=== PATIENT | female | born 1990 | race Caucasian/White ===

== ENCOUNTER 2018-05-27 17:53 | Inpatient (IN) | payer OTHER ==
[~2018-05-27] VITALS: Ht 157.5 cm; Wt 60.4 kg
[2018-05-27] MEDS ORDERED: ESLI600T PO (18:01)
[2018-05-27] MEDS ORDERED: DIPH25 PO (18:01)
[2018-05-27] MEDS ORDERED: ETHI1TAB28 PO (18:01)
[2018-05-27] MEDS ORDERED: GABA-531 PO (18:01)
[2018-05-27] MEDS ORDERED: HYDR-4031 PO (18:01)
[2018-05-27] MEDS ORDERED: TRAZ-220 PO (18:01)
[2018-05-27] MEDS ORDERED: FLUO-191 PO (18:02)
[2018-05-27] MEDS ORDERED: DiphenhydrAMINE HCL 25 MG CAPSULE PO ONE (19:45)
[2018-05-27] MEDS ORDERED: ACETAMINOPHEN 325 MG TABLET PO ONE (19:45)
[2018-05-27 20:00] LABS: BASOPHILS % (AUTO) 0.1 % (0.0-2.0); EOSINOPHILS % (AUTO) 0.5 % (1.0-6.0); HEMATOCRIT 34.6 % (36-46); HEMOGLOBIN 11.8 g/dL (12.0-16.0); LYMPHOCYTES # (AUTO) 2.3 K/uL (1.0-4.8); MEAN CORPUSCULAR HEMOGLOBIN 30.1 pg (26.0-34.0); MEAN CORPUSCULAR HGB CONC 34.1 G/dL (31.0-37.0); MEAN CORPUSCULAR VOLUME 89 fL (80-100); MONOCYTES # (AUTO) 0.6 K/uL (0.1-1.0); MONOCYTES % (AUTO) 6.7 % (2.0-9.0); NEUTROPHILS # (AUTO) 6.1 K/uL (1.8-7.7); NEUTROPHILS % (AUTO) 67.7 % (40.0-70.0); PLATELET COUNT (AUTO) 247 K/uL (150-450); RED BLOOD CELL COUNT(AUTO) 3.91 MIL/uL (4.00-5.20)
[2018-05-27 20:11] LABS: ANION GAP 4 mmol/L (8-16); CALCIUM, TOTAL 8.4 mg/dL (8.8-10.5); CARBON DIOXIDE 32 mmol/L (22-29); CHLORIDE 105 mmol/L (98-107); CREATININE 0.87 mg/dL (0.60-1.30); GLOMERULAR FILTR. RATE CALC > 60 mL/min (>60); GLUCOSE,RANDOM 134 mg/dL (70-110); POTASSIUM 3.8 mmol/L (3.5-5.1); SODIUM SERUM 141 mmol/L (136-145); UREA NITROGEN, BLOOD 13 mg/dL (7-18)
[2018-05-27 20:17] LABS: ALANINE AMINOTRANSFERASE 26 U/L (12-78); ALBUMIN 3.4 g/dL (3.4-5.0); ALKALINE PHOSPHATASE 43 U/L (46-116); ASPARTATE AMINOTRANSFERASE 24 U/L (15-37); BILIRUBIN,TOTAL 0.2 mg/dL (0.1-1.0); TOTAL PROTEIN, SERUM 6.7 g/dL (6.4-8.2)
[2018-05-27 21:10] LABS: AMPHET/METH SCREEN,URINE NEGATIVE (NEGATIVE); BARBITURATE SCREEN, URINE NEGATIVE (NEGATIVE); BENZODIAZEPINES SCREEN,URINE NEGATIVE (NEGATIVE); CANNABINOID SCREEN,URINE NEGATIVE (NEGATIVE); COCAINE SCREEN,URINE NEGATIVE (NEGATIVE); METHADONE SCREEN, URINE NEGATIVE (NEGATIVE); OPIATE SCREEN,URINE NEGATIVE (NEGATIVE)
[2018-05-27 21:11] LABS: PHENCYCLIDINE SCREEN,URINE NEGATIVE (NEGATIVE)
[2018-05-27] MEDS ORDERED: OLANZapine 5 MG RAPDIS TABLET PO PRN (21:30)
[2018-05-27] MEDS: LORazepam 2 MG TABLET PO PRN (23:05)
[2018-05-28 08:08] LABS: CHOL/HDL RATIO 2.3 (3.9-5.7); CHOLESTEROL 203 mg/dL (131-200); HDL CHOLESTEROL 89 mg/dL (40-60); LDL CHOL (CALC.) 101 mg/dL (0-130); TRIGLYCERIDES 65 mg/dL (15-150)
[2018-05-28] MEDS: LORazepam 2 MG TABLET PO PRN (11:30)
[2018-05-28 14:28] VITALS: BP 115/63
[2018-05-28] MEDS ORDERED: LOPERAMIDE HCL 2 MG CAPSULE PO PRN (15:45)
[2018-05-28] MEDS: OMEPRAZOLE 20 MG CAPSULE PO SCH (16:25)
[2018-05-28] MEDS: FLUTICASONE PROPIONATE 50 MCG/SPRAY 16 GM NASAL SPRAY NASAL SCH (16:30)
[2018-05-28] MEDS: DOCUSATE SODIUM 100 MG CAPSULE PO SCH (16:30)
[2018-05-28] MEDS ORDERED: MAGNESIUM HYDROXIDE SUSPENSION 30 ML UDCUP PO PRN (16:45)
[2018-05-28] MEDS ORDERED: TUBERCULIN, PURIFIED PROTEIN DERIVATIVE 5 TU/0.1 ML SYG ID ONE (16:45)
[2018-05-28] MEDS ORDERED: MAG HYDROX/AL HYDROX/SIMETH ES 30 ML SUSPENSION UDCUP PO PRN (16:45)
[2018-05-28] MEDS ORDERED: PROMETHAZINE HCL 25 MG TABLET PO PRN (16:45)
[2018-05-28] MEDS ORDERED: HydrOXYzine PAMOATE 50 MG CAPSULE PO PRN (16:45)
[2018-05-28] MEDS ORDERED: GuaiFENesin/D-METHORPHAN [SUGAR-FREE] 200-20MG/10 ML SYRUP UDCUP PO PRN (16:45)
[2018-05-28] MEDS ORDERED: HydrOXYzine PAMOATE 25 MG CAPSULE PO SCH (17:00)
[2018-05-28] MEDS: GABAPENTIN 300 MG CAPSULE PO SCH ×2 (17:00→20:30)
[2018-05-28] MEDS ORDERED: GABAPENTIN 300 MG CAPSULE PO SCH (17:00)
[2018-05-28] MEDS: THIAMINE HCL 100 MG TABLET PO SCH (17:24)
[2018-05-28] MEDS ORDERED: *PATIENT'S OWN MED [ENTER DRUG, DOSE, FREQUENCY IN COMMENTS] CLINICAL ONE ×2 (18:15)
[2018-05-28] MEDS: TraZODone HCL 100 MG TABLET PO SCH (20:28)
[2018-05-28] MEDS: NYSTATIN 30 GM CREAM TP SCH (20:30)
[2018-05-28] MEDS: ZOLPIDEM TARTRATE 10 MG TABLET PO PRN (20:30)
[2018-05-28 22:46] VITALS: BP 111/63
[2018-05-29] MEDS: DROSPIRENONE PO SCH (08:34)
[2018-05-29] MEDS: ETHINYL ESTRADIOL PO SCH (08:34)
[2018-05-29] MEDS: DOCUSATE SODIUM 100 MG CAPSULE PO SCH ×2 (09:00→18:20)
[2018-05-29] MEDS: FLUTICASONE PROPIONATE 50 MCG/SPRAY 16 GM NASAL SPRAY NASAL SCH ×2 (09:00→18:20)
[2018-05-29] MEDS: OMEPRAZOLE 20 MG CAPSULE PO SCH ×2 (09:00→18:20)
[2018-05-29] MEDS: MULTIVITAMINS WITH MINERALS, THERAPEUTIC TABLET PO SCH (09:00)
[2018-05-29] MEDS: NALTREXONE HCL 50 MG TABLET PO SCH (09:00)
[2018-05-29] MEDS: THIAMINE HCL 100 MG TABLET PO SCH ×2 (09:00→17:00)
[2018-05-29] MEDS: FOLIC ACID 1 MG TABLET PO SCH (09:00)
[2018-05-29] MEDS: DOXYCYCLINE HYCLATE 100 MG CAPSULE PO SCH (09:00)
[2018-05-29] MEDS: GABAPENTIN 300 MG CAPSULE PO SCH ×2 (09:29→13:00)
[2018-05-29 09:34] VITALS: BP 103/61
[2018-05-29] MEDS ORDERED: GABAPENTIN 300 MG CAPSULE PO PRN (16:45)
[2018-05-29] MEDS ORDERED: ZIPRASIDONE MESYLATE 20 MG/VIAL IM ONE ×2 (17:43→17:45)
[2018-05-29] MEDS ORDERED: LORazepam 2 MG/ML VIAL ONE (17:43)
[2018-05-29] MEDS ORDERED: LORazepam 2 MG/ML VIAL IM ONE (17:45)
[2018-05-29] MEDS: LevETIRAcetam 500 MG TABLET PO SCH (18:20)
[2018-05-29] MEDS: BACITRACIN 28.4 GM OINTMENT TP SCH (18:20)
[2018-05-29] MEDS: FLUoxetine HCL 20 MG CAPSULE PO SCH (18:20)
[2018-05-29] MEDS: ESLICARBAZEPINE ACETATE 600 MG PO SCH (22:00)
[2018-05-29] MEDS: NYSTATIN 30 GM CREAM TP SCH (22:00)
[2018-05-29] MEDS: TraZODone HCL 100 MG TABLET PO SCH (22:00)
[2018-05-30] MEDS: LevETIRAcetam 500 MG TABLET PO SCH ×2 (08:34→16:16)
[2018-05-30] MEDS: ETHINYL ESTRADIOL PO SCH (08:35)
[2018-05-30] MEDS: DROSPIRENONE PO SCH (08:35)
[2018-05-30] MEDS: FLUoxetine HCL 20 MG CAPSULE PO SCH (08:35)
[2018-05-30] MEDS: DOCUSATE SODIUM 100 MG CAPSULE PO SCH ×2 (08:46→17:00)
[2018-05-30] MEDS: FLUTICASONE PROPIONATE 50 MCG/SPRAY 16 GM NASAL SPRAY NASAL SCH ×2 (08:46→17:00)
[2018-05-30] MEDS: OMEPRAZOLE 20 MG CAPSULE PO SCH ×2 (08:47→16:16)
[2018-05-30] MEDS: NALTREXONE HCL 50 MG TABLET PO SCH (08:47)
[2018-05-30] MEDS: FOLIC ACID 1 MG TABLET PO SCH (08:47)
[2018-05-30] MEDS: MULTIVITAMINS WITH MINERALS, THERAPEUTIC TABLET PO SCH (08:47)
[2018-05-30] MEDS: THIAMINE HCL 100 MG TABLET PO SCH ×2 (08:48→16:16)
[2018-05-30] MEDS: DOXYCYCLINE HYCLATE 100 MG CAPSULE PO SCH (08:48)
[2018-05-30] MEDS: BACITRACIN 28.4 GM OINTMENT TP SCH ×2 (08:52→16:16)
[2018-05-30] MEDS: DiphenhydrAMINE HCL 25 MG CAPSULE PO PRN ×2 (09:25→20:46)
[2018-05-30] MEDS: LORazepam 2 MG TABLET PO PRN (16:22)
[2018-05-30 17:00] VITALS: BP 137/78
[2018-05-30] MEDS: ZOLPIDEM TARTRATE 10 MG TABLET PO PRN (20:45)
[2018-05-30] MEDS: NYSTATIN 30 GM CREAM TP SCH (21:41)
[2018-05-30] MEDS: TraZODone HCL 100 MG TABLET PO SCH (21:41)
[2018-05-30] MEDS: ESLICARBAZEPINE ACETATE 600 MG PO SCH (21:41)
[2018-05-31] MEDS: DiphenhydrAMINE HCL 25 MG CAPSULE PO PRN (07:00)
[2018-05-31] MEDS: DOCUSATE SODIUM 100 MG CAPSULE PO SCH ×2 (09:00→16:43)
[2018-05-31] MEDS: NALTREXONE HCL 50 MG TABLET PO SCH (09:00)
[2018-05-31] MEDS: DOXYCYCLINE HYCLATE 100 MG CAPSULE PO SCH (09:00)
[2018-05-31] MEDS: OMEPRAZOLE 20 MG CAPSULE PO SCH ×2 (10:08→16:35)
[2018-05-31] MEDS: MULTIVITAMINS WITH MINERALS, THERAPEUTIC TABLET PO SCH (10:08)
[2018-05-31] MEDS: FOLIC ACID 1 MG TABLET PO SCH (10:08)
[2018-05-31] MEDS: THIAMINE HCL 100 MG TABLET PO SCH ×2 (10:08→16:35)
[2018-05-31] MEDS: FLUoxetine HCL 20 MG CAPSULE PO SCH (10:08)
[2018-05-31] MEDS: LevETIRAcetam 500 MG TABLET PO SCH ×2 (10:08→16:35)
[2018-05-31] MEDS: ETHINYL ESTRADIOL PO SCH (10:09)
[2018-05-31] MEDS: DROSPIRENONE PO SCH (10:09)
[2018-05-31] MEDS: BACITRACIN 28.4 GM OINTMENT TP SCH ×2 (10:09→16:35)
[2018-05-31] MEDS: ACETAMINOPHEN 325 MG TABLET PO PRN (12:24)
[2018-05-31] MEDS: FLUTICASONE PROPIONATE 50 MCG/SPRAY 16 GM NASAL SPRAY NASAL SCH ×2 (13:02→16:42)
[2018-05-31] MEDS: LITHIUM CARBONATE 300 MG CAPSULE PO SCH ×2 (13:03→16:35)
[2018-05-31 16:07] VITALS: BP 129/75
[2018-05-31] MEDS: NYSTATIN 30 GM CREAM TP SCH (20:33)
[2018-05-31] MEDS: ESLICARBAZEPINE ACETATE 600 MG PO SCH (20:33)
[2018-05-31] MEDS: TraZODone HCL 100 MG TABLET PO SCH (20:35)
[2018-05-31] MEDS: ZOLPIDEM TARTRATE 10 MG TABLET PO PRN (20:42)
[2018-06-01] MEDS: DOCUSATE SODIUM 100 MG CAPSULE PO SCH ×3 (08:36→17:00)
[2018-06-01] MEDS: MULTIVITAMINS WITH MINERALS, THERAPEUTIC TABLET PO SCH (08:36)
[2018-06-01] MEDS: OMEPRAZOLE 20 MG CAPSULE PO SCH ×2 (08:36→18:43)
[2018-06-01] MEDS: LevETIRAcetam 500 MG TABLET PO SCH ×2 (08:36→18:43)
[2018-06-01] MEDS: FLUoxetine HCL 20 MG CAPSULE PO SCH (08:37)
[2018-06-01] MEDS: THIAMINE HCL 100 MG TABLET PO SCH ×2 (08:37→18:43)
[2018-06-01] MEDS: DOXYCYCLINE HYCLATE 100 MG CAPSULE PO SCH ×2 (08:38→08:51)
[2018-06-01] MEDS: BACITRACIN 28.4 GM OINTMENT TP SCH ×2 (08:38→18:42)
[2018-06-01] MEDS: FOLIC ACID 1 MG TABLET PO SCH (08:38)
[2018-06-01] MEDS: LITHIUM CARBONATE 300 MG CAPSULE PO SCH ×2 (08:39→18:42)
[2018-06-01] MEDS: FLUTICASONE PROPIONATE 50 MCG/SPRAY 16 GM NASAL SPRAY NASAL SCH ×2 (08:39→17:00)
[2018-06-01] MEDS: NALTREXONE HCL 50 MG TABLET PO SCH (08:39)
[2018-06-01] MEDS: ETHINYL ESTRADIOL PO SCH (08:41)
[2018-06-01] MEDS: DROSPIRENONE PO SCH (08:41)
[2018-06-01] MEDS: ACETAMINOPHEN 325 MG TABLET PO PRN (12:07)
[2018-06-01 12:12] VITALS: BP 101/48
[2018-06-01 13:08] VITALS: BP 104/64
[2018-06-01 16:30] VITALS: BP 102/67
[2018-06-01] MEDS: ESLICARBAZEPINE ACETATE 600 MG PO SCH (20:18)
[2018-06-01] MEDS: NYSTATIN 30 GM CREAM TP SCH (20:18)
[2018-06-01] MEDS: TraZODone HCL 100 MG TABLET PO SCH (20:18)
[2018-06-01] MEDS: DiphenhydrAMINE HCL 25 MG CAPSULE PO PRN (22:38)
[2018-06-02] MEDS: DOCUSATE SODIUM 100 MG CAPSULE PO SCH ×2 (09:00→16:53)
[2018-06-02] MEDS: OMEPRAZOLE 20 MG CAPSULE PO SCH ×2 (09:00→16:42)
[2018-06-02] MEDS: DOXYCYCLINE HYCLATE 100 MG CAPSULE PO SCH (09:00)
[2018-06-02] MEDS: FLUTICASONE PROPIONATE 50 MCG/SPRAY 16 GM NASAL SPRAY NASAL SCH ×2 (09:00→16:52)
[2018-06-02] MEDS: NALTREXONE HCL 50 MG TABLET PO SCH (09:00)
[2018-06-02] MEDS: FLUoxetine HCL 20 MG CAPSULE PO SCH (09:10)
[2018-06-02] MEDS: LevETIRAcetam 500 MG TABLET PO SCH ×2 (09:10→16:42)
[2018-06-02] MEDS: FOLIC ACID 1 MG TABLET PO SCH (09:11)
[2018-06-02] MEDS: LITHIUM CARBONATE 300 MG CAPSULE PO SCH ×2 (09:11→16:43)
[2018-06-02] MEDS: THIAMINE HCL 100 MG TABLET PO SCH ×2 (09:11→16:43)
[2018-06-02] MEDS: BACITRACIN 28.4 GM OINTMENT TP SCH ×2 (09:11→16:44)
[2018-06-02] MEDS: MULTIVITAMINS WITH MINERALS, THERAPEUTIC TABLET PO SCH (09:11)
[2018-06-02] MEDS: ETHINYL ESTRADIOL PO SCH (09:13)
[2018-06-02] MEDS: DROSPIRENONE PO SCH (09:13)
[2018-06-02] MEDS: LORazepam 2 MG TABLET PO PRN (15:45)
[2018-06-02 16:11] VITALS: BP 129/78
[2018-06-02] MEDS: ESLICARBAZEPINE ACETATE 600 MG PO SCH (21:07)
[2018-06-02] MEDS: NYSTATIN 30 GM CREAM TP SCH (21:07)
[2018-06-02] MEDS: TraZODone HCL 100 MG TABLET PO SCH (21:07)
[2018-06-03 08:00] VITALS: BP 112/59
[2018-06-03] MEDS: LITHIUM CARBONATE 300 MG CAPSULE PO SCH (08:46)
[2018-06-03] MEDS: FLUTICASONE PROPIONATE 50 MCG/SPRAY 16 GM NASAL SPRAY NASAL SCH (08:46)
[2018-06-03] MEDS: BACITRACIN 28.4 GM OINTMENT TP SCH (08:47)
[2018-06-03] MEDS: NALTREXONE HCL 50 MG TABLET PO SCH (08:47)
[2018-06-03] MEDS: THIAMINE HCL 100 MG TABLET PO SCH (08:47)
[2018-06-03] MEDS: DOCUSATE SODIUM 100 MG CAPSULE PO SCH (08:47)
[2018-06-03] MEDS: FOLIC ACID 1 MG TABLET PO SCH (08:47)
[2018-06-03] MEDS: DOXYCYCLINE HYCLATE 100 MG CAPSULE PO SCH (08:47)
[2018-06-03] MEDS: FLUoxetine HCL 20 MG CAPSULE PO SCH (08:47)
[2018-06-03] MEDS: OMEPRAZOLE 20 MG CAPSULE PO SCH (08:47)
[2018-06-03] MEDS: LevETIRAcetam 500 MG TABLET PO SCH (08:47)
[2018-06-03] MEDS: MULTIVITAMINS WITH MINERALS, THERAPEUTIC TABLET PO SCH (08:47)
[2018-06-03] MEDS: ETHINYL ESTRADIOL PO SCH (09:39)
[2018-06-03] MEDS: DROSPIRENONE PO SCH (09:39)
[2018-06-03] MEDS: LORazepam 2 MG TABLET PO PRN (10:08)
[2018-06-03] MEDS ORDERED: FLUO-191 PO (15:50)
[2018-06-03] MEDS ORDERED: LITH300C3 PO (15:51)
[2018-06-03] MEDS ORDERED: NALT50TA6 PO (15:52)
[2018-06-03] MEDS ORDERED: TRAZ-220 PO (15:53)
[2018-06-03] MEDS ORDERED: LEVE500T53 PO (16:04)
[2018-06-03] MEDS ORDERED: DOXY100C PO (16:04)
[2018-06-03] MEDS ORDERED: OMEP20 PO (16:05)
== END 2018-06-03 17:00 | disposition home or self-care (01) | DRG 885 ==
LOC: EMS 17:55 → 3EX 05-28 13:04
PROVIDERS: ADMIT Psychiatry & Neurology Psychiatry; ATTEND Psychiatry & Neurology Child & Adolescent Psychiatry
DX: F31.9 Bipolar disorder, unspecified (principal); R45.851 Suicidal ideations; Z28.21 Immunization not carried out because of patient refusal; Z88.1 Allergy status to other antibiotic agents; Z88.8 Allergy status to other drugs, medicaments and biological substances; F41.9 Anxiety disorder, unspecified; D64.9 Anemia, unspecified; E78.5 Hyperlipidemia, unspecified; S01.91XA Laceration without foreign body of unspecified part of head, initial encounter; X58.XXXA Exposure to other specified factors, initial encounter; Y93.89 Activity, other specified; Y92.89 Other specified places as the place of occurrence of the external cause; Y99.8 Other external cause status; Z79.899 Other long term (current) drug therapy; F17.210 Nicotine dependence, cigarettes, uncomplicated; G40.909 Epilepsy, unspecified, not intractable, without status epilepticus
CPT/HCPCS: G0378; G0480; J2060; J3486

== ENCOUNTER 2018-09-03 21:25 | Emergency (ER) | payer OTHER ==
[~2018-09-03 21:25] MED LIST: DOXY100C PO; FLUO-191 PO; LEVE500T53 PO; LITH300C3 PO; NALT50TA6 PO; OMEP20 PO; TRAZ-220 PO
== END 2018-09-03 22:00 | disposition left against medical advice (07) ==
LOC: EMS 21:26
DX: R45.851 Suicidal ideations (principal); Z53.21 Procedure and treatment not carried out due to patient leaving prior to being seen by health care provider